=== PATIENT | male | born 1995 | race Caucasian/White ===

== ENCOUNTER 2025-01-10 17:16 | Emergency (ER) | payer BC ==
[2025-01-10 17:55] LABS: BASOPHILS ABSOLUTE AUTO 0.05 K/uL (0.00-0.20); BASOPHILS PERCENT AUTO 0.7 % (0.0-1.0); EOSINOPHILS ABSOLUTE AUTO 0.16 K/uL (0.00-0.45); EOSINOPHILS PERCENT AUTO 2.2 % (0.0-6.0); HEMOGLOBIN 15.9 g/dL (14.0-18.0); IMMATURE GRAN ABSOLUTE AUTO 0.02 K/uL (0.00-0.05); IMMATURE GRAN PERCENT AUTO 0.3 % (0.0-0.4); LYMPHOCYTES ABSOLUTE AUTO 2.96 K/uL (1.00-4.80); LYMPHOCYTES PERCENT AUTO 40.4 % (24.0-44.0); MEAN CORPUSCULAR HEMOGLOBIN 31.5 pg (28.0-32.0); MEAN CORPUSCULAR HGB CONC 34.6 g/dL (32.0-36.0); MEAN CORPUSCULAR VOLUME 91.1 fL (83.0-99.0); MEAN PLATELET VOLUME 9.9 fL (9.4-12.4); MONOCYTES ABSOLUTE AUTO 0.61 K/uL (0.00-0.80); MONOCYTES PERCENT AUTO 8.3 % (0.0-8.0); NEUTROPHILS ABSOLUTE AUTO 3.52 K/uL (1.80-7.70); NEUTROPHILS PERCENT AUTO 48.1 % (41.0-71.0); PLATELET COUNT,PLT 276 K/uL (150-400); RED BLOOD CELL COUNT 5.05 M/uL (4.52-5.90); WHITE BLOOD CELL COUNT,WBC 7.32 K/uL (3.9-11.3)
[2025-01-10] MEDS: Iopamidol 755 Mg/ML 100 ML Bottle IVPUSH STA (18:21)
[2025-01-10 18:28] LABS: A/G RATIO 1.3 (0.9-1.6); ALBUMIN 4.5 g/dL (3.4-5.0); BILIRUBIN TOTAL 0.4 mg/dL (0.2-1.0); CALCIUM 9.6 mg/dL (8.5-10.1); EST CRCL DRUG DOSING (CG) 103.74 mL/min; MAGNESIUM 2.3 mg/dL (1.8-2.4); POTASSIUM,K 3.9 mmol/L (3.5-5.1)
[2025-01-10] MEDS: Ondansetron 4 MG/2 ML SDV IVPUSH ONE (18:48)
[2025-01-10] MEDS: Meclizine 25 MG Tab PO ONE (18:48)
[2025-01-10] MEDS: Sodium Chloride 0.9% 1,000 ML IV ONE (18:48)
[2025-01-10] MEDS ORDERED: Dexamethasone 4 MG Tab PO ONE (19:36)
== END 2025-01-10 20:04 | disposition home or self-care (01) ==
LOC: MW.ED 17:16
DX: H81.392 Other peripheral vertigo, left ear (principal); H55.09 Other forms of nystagmus; Z79.899 Other long term (current) drug therapy
CPT/HCPCS: 36415; 70450; 70496; 70498; 80053; 83735; 83880; 84484; 85025; 93005; 96374; 99284; A9270; J2405; J7030; Q9967; 93010